=== PATIENT | female | born 1985 | race Caucasian/White ===

== ENCOUNTER 2017-11-03 11:21 | Emergency (ER) | payer OTHER, MEDICAID ==
[~2017-11-03] VITALS: Ht 162.6 cm; Wt 81.7 kg
[~2017-11-03 11:21] MED LIST: ACETAMINOPHEN-1 EAC1 PO; ADDERALL 10 MG10 MG PO; ADDERALL 20 MG20 MG PO; ADDERALL 30 MG30 MG PO; ALDACTONE100 MG PO; AMITRIPTYLINE H50 M3; ANTIVERT25 MG PO; AZITHROMYCIN 2250 MG PO; BACTRIM DS TAB1 EACH PO; BENADRYL25 MG PO; BENTYL 20 MG TA20 M1 PO; BIRTH CONTROL PILL; BRINTELLIX5 MG; BUTALBITAL PO; CARAFATE 1 GM TA1 G1 PO; CEPHALEXIN 500500 M3 PO; CIPROFLOXACIN500 M1 PO; CLARITIN10 MG PO; CLEOCIN HCL150 MG PO; CLEOCIN HCL300 MG PO; COD PO; CONCERTA54 M1 PO; DICLOFENAC SODI75 MG PO; DIFLUCAN150 MG; DOXYCYCLINE 10100 M1 PO; DOXYCYCLINE 10100 MG PO; ERYTHROMYCIN500 MG PO; FIORINAL 50-321 EACH PO; FIORINAL WITH1 EACH PO; FIORINAL/CODEIN30 M1 PO; FLEXERIL PO; GABAPENTIN; GABAPENTIN100 MG PO; HYDROCODON-ACE1 EAC7 PO; HYDROCODONE-AP1 EAC6 PO; HYDROCODONE-APA1 TA1 PO; IBUPROFEN 200200 M1 PO; IBUPROFEN 600600 M1 PO; IBUPROFEN 800800 M1 PO; KEFLEX500 MG PO; KLOR-CON 1010 MEQ PO; LAMICTAL100 MG PO; LATUDA20 MG PO; LEVAQUIN 500 M500 M2 PO; LEVAQUIN 500 M500 M4 PO; LEXAPRO20 MG PO; LIDOCAINE VISC100 M1 SWISH&SPIT; LIORESAL 10 MG10 MG PO; LODINE 200MG C200 M1 PO; MEDROLDOSEPACK PO; MIRANA; MIRENA1 EACH; MUPIROCIN1 GM TP; NAPROSYN500 MG PO; NEURONTIN 300300 M1; NEURONTIN 300300 M1 PO; NORCO 5-325 TA1 EAC1 PO; NORCO 5-325 TA1 EACH PO; ONDANSETRON HCL4 M2 PO; PERCOCET PO; PRENATAL; PRILOSEC 20 MG20 MG PO; PRILOSEC20 MG; PROMETHAZINE12.5 M1 PO; PYRIDIUM200 MG PO; ROBAXIN 750 MG750 M1 PO; TOPAMAX50 MG PO; TORADOL 10 MG T10 MG PO; TRAZODONE 150150 M1 PO; ULTRAM 50MG TAB50 MG PO; VALIUM5 MG PO; VENLAFAXIN75 MG/1 T2 PO; VISTARIL 25 MG25 M1; VISTARIL 25 MG25 M1 PO; VISTARIL50 MG PO; XANAX 0.5 MG0.5 M1 PO; ZANAFLEX4 M2 PO; ZANAFLEX4 MG PO; ZANTAC25 MG/1 ML IJ; ZOFRAN ODT4 MG PO; ZPAK PO
[2017-11-03 11:30] VITALS: BP 109/94
[2017-11-03] MEDS ORDERED: ZANTAC 150MG T150 MG PO (11:32)
[2017-11-03] MEDS ORDERED: CLEOCIN HCL150 MG PO (11:42)
[2018-06-22] MEDS ORDERED: PERCOCET 7.5-31 EACH PO (03:52)
[2018-06-22] MEDS ORDERED: DOXYCYCLINE 10100 MG PO (03:52)
== END 2017-11-03 11:47 | disposition home or self-care (01) ==
LOC: M.ERS 11:21
DX: K08.89 Other specified disorders of teeth and supporting structures (principal); F41.9 Anxiety disorder, unspecified; F31.9 Bipolar disorder, unspecified; F90.9 Attention-deficit hyperactivity disorder, unspecified type; G43.909 Migraine, unspecified, not intractable, without status migrainosus; F17.210 Nicotine dependence, cigarettes, uncomplicated; Z88.2 Allergy status to sulfonamides; Z88.1 Allergy status to other antibiotic agents; Z88.5 Allergy status to narcotic agent

== ENCOUNTER 2018-01-18 14:58 | Emergency (ER) | payer OTHER, MEDICAID ==
[~2018-01-18] VITALS: Ht 165.1 cm; Wt 72.6 kg
[~2018-01-18 14:58] MED LIST changes: +ZANTAC 150MG T150 MG PO
[2018-01-18] MEDS ORDERED: HYDROCODONE-AP1 EAC6 PO (16:19)
[2018-01-18 16:38] VITALS: BP 123/68
[2018-06-22] MEDS ORDERED: DOXYCYCLINE 10100 MG PO (03:52)
[2018-06-22] MEDS ORDERED: PERCOCET 7.5-31 EACH PO (03:52)
== END 2018-01-18 16:39 | disposition home or self-care (01) ==
LOC: M.ERS 14:58
DX: R07.81 Pleurodynia (principal); M54.6 Pain in thoracic spine; G43.909 Migraine, unspecified, not intractable, without status migrainosus; Z88.2 Allergy status to sulfonamides; Z88.1 Allergy status to other antibiotic agents; W10.9XXA Fall (on) (from) unspecified stairs and steps, initial encounter; Y93.89 Activity, other specified; Y92.89 Other specified places as the place of occurrence of the external cause; Y99.8 Other external cause status

== ENCOUNTER 2018-02-11 17:20 | Emergency (ER) | payer OTHER, MEDICAID ==
[~2018-02-11] VITALS: Ht 165.1 cm; Wt 96.3 kg
[2018-02-11] MEDS ORDERED: NEURONTIN 300300 M1 PO (17:33)
[2018-02-11] MEDS ORDERED: PHENERGAN 25 MG25 M1 PO (17:35)
[2018-02-11 17:45] VITALS: BP 145/83
[2018-06-22] MEDS ORDERED: PERCOCET 7.5-31 EACH PO (03:52)
[2018-06-22] MEDS ORDERED: DOXYCYCLINE 10100 MG PO (03:52)
== END 2018-02-11 17:46 | disposition home or self-care (01) ==
LOC: M.ERS 17:20
DX: G43.909 Migraine, unspecified, not intractable, without status migrainosus (principal); F31.9 Bipolar disorder, unspecified; F90.9 Attention-deficit hyperactivity disorder, unspecified type; F17.210 Nicotine dependence, cigarettes, uncomplicated; Z88.1 Allergy status to other antibiotic agents; Z88.6 Allergy status to analgesic agent

== ENCOUNTER 2018-02-16 16:15 | Emergency (ER) | payer OTHER, MEDICAID ==
[~2018-02-16] VITALS: Ht 165.1 cm; Wt 74.8 kg
[~2018-02-16 16:15] MED LIST changes: +PHENERGAN 25 MG25 M1 PO
[2018-02-16] MEDS ORDERED: XANAX 0.25 MG0.25 MG PO (16:22)
[2018-02-16] MEDS ORDERED: KEFLEX500 M1 PO (16:27)
[2018-02-16 16:32] VITALS: BP 117/61
[2018-02-17] MEDS ORDERED: ACETAMINOPHEN-1 EAC1 PO (21:15)
[2018-06-22] MEDS ORDERED: DOXYCYCLINE 10100 MG PO (03:52)
[2018-06-22] MEDS ORDERED: PERCOCET 7.5-31 EACH PO (03:52)
== END 2018-02-16 16:33 | disposition home or self-care (01) ==
LOC: M.ERS 16:15
DX: L03.317 Cellulitis of buttock (principal); F90.9 Attention-deficit hyperactivity disorder, unspecified type; F31.9 Bipolar disorder, unspecified; G43.909 Migraine, unspecified, not intractable, without status migrainosus; F17.210 Nicotine dependence, cigarettes, uncomplicated; Z88.6 Allergy status to analgesic agent; Z88.1 Allergy status to other antibiotic agents

== ENCOUNTER 2018-02-17 20:24 | Emergency (ER) | payer OTHER, MEDICAID ==
[~2018-02-17] VITALS: Ht 165.1 cm; Wt 74.8 kg
[~2018-02-17 20:24] MED LIST changes: +KEFLEX500 M1 PO; +XANAX 0.25 MG0.25 MG PO
[2018-02-17] MEDS ORDERED: ACETAMINOPHEN-1 EAC1 PO (21:15)
[2018-02-17 21:31] VITALS: BP 117/60
[2018-06-22] MEDS ORDERED: PERCOCET 7.5-31 EACH PO (03:52)
[2018-06-22] MEDS ORDERED: DOXYCYCLINE 10100 MG PO (03:52)
== END 2018-02-17 21:32 | disposition home or self-care (01) ==
LOC: M.ERS 20:24
DX: L02.31 Cutaneous abscess of buttock (principal); F90.9 Attention-deficit hyperactivity disorder, unspecified type; F31.9 Bipolar disorder, unspecified; F41.9 Anxiety disorder, unspecified; G43.909 Migraine, unspecified, not intractable, without status migrainosus; F17.210 Nicotine dependence, cigarettes, uncomplicated; Z88.2 Allergy status to sulfonamides; Z88.1 Allergy status to other antibiotic agents; Z88.6 Allergy status to analgesic agent

== ENCOUNTER 2018-03-25 20:04 | Emergency (ER) | payer OTHER, MEDICAID ==
[~2018-03-25] VITALS: Ht 165.1 cm; Wt 81.7 kg
[2018-03-25 20:34] LABS: URINE BILIRUBIN NEGATIVE (Negative); URINE BLOOD NEGATIVE (Negative); URINE CLARITY CLEAR; URINE COLOR YELLOW; URINE GLUCOSE-RANDOM NEGATIVE (Negative); URINE KETONES NEGATIVE (Negative); URINE LEUKOCYTES-REFLEX TRACE (Negative); URINE NITRITE-REFLEX NEGATIVE (Negative); URINE PROTEIN NEGATIVE (Negative); URINE SPECIFIC GRAVITY 1.025 (1.005-1.030); URINE UROBILINOGEN 0.2 E.U./dl (0.2-1.0)
[2018-03-25 20:36] LABS: BACTERIA-REFLEX None Seen /HPF (None Seen); CASTS None Seen /LPF (None Seen); CRYSTALS None Seen /LPF (None Seen); SQUAMOUS 4-10 Moderate /LPF (0-3); URINE RBC None Seen /HPF (0-2); URINE WBC-REFLEX 0-5 Rare /HPF (0-5)
[2018-03-25 21:01] LABS: ABSOLUTE EOSINOPHILS 0.3 thou/uL (0.0-0.7); ABSOLUTE MONOCYTES 0.6 thou/uL (0.0-1.2); ABSOLUTE NEUTROPHILS 5.2 thou/uL (1.6-8.1); BASOPHILS 0.5 %; EOSINOPHILS 2.9 %; HEMATOCRIT 37.7 % (37.0-47.0); HEMOGLOBIN 12.5 gm/dL (12.0-15.0); LYMPHOCYTES 39.6 %; MCH 29.9 pg (26.0-34.0); MCHC 33.3 g/dL (28.0-37.0); MONOCYTES 5.7 %; NUCLEATED RBCS 0 /100WBC; PLATELET COUNT* 244 thou/uL (150-400); POLYS 51.3 %; RBC 4.19 mil/uL (4.20-5.00); RDW-CV 13.3 % (10.5-14.5); WBC 10.1 thou/uL (4.0-11.0)
[2018-03-25 21:12] LABS: CALCIUM 8.4 mg/dL (8.5-10.1); CREATININE 0.7 mg/dL (0.6-1.3); POTASSIUM 3.7 mmol/L (3.5-5.1)
[2018-03-25 21:16] LABS: ALBUMIN 3.7 g/dL (3.4-5.0); TOTAL BILIRUBIN 0.2 mg/dL (<0.1-1.0); TOTAL PROTEIN 6.8 g/dL (6.4-8.2)
[2018-03-25] MEDS ORDERED: BENTYL 20 MG TA20 M1 PO (21:43)
[2018-03-25] MEDS ORDERED: ZOFRAN4 MG PO (21:43)
[2018-03-25 22:03] VITALS: BP 114/65
[2018-06-22] MEDS ORDERED: DOXYCYCLINE 10100 MG PO (03:52)
[2018-06-22] MEDS ORDERED: PERCOCET 7.5-31 EACH PO (03:52)
== END 2018-03-25 22:05 | disposition home or self-care (01) ==
LOC: M.ERS 20:04
PROVIDERS: Nurse Practitioner
DX: R10.84 Generalized abdominal pain (principal); F90.9 Attention-deficit hyperactivity disorder, unspecified type; F41.9 Anxiety disorder, unspecified; F31.9 Bipolar disorder, unspecified; F17.210 Nicotine dependence, cigarettes, uncomplicated; Z88.1 Allergy status to other antibiotic agents; Z88.6 Allergy status to analgesic agent; G43.909 Migraine, unspecified, not intractable, without status migrainosus

== ENCOUNTER 2018-04-11 21:04 | Emergency (ER) | payer OTHER, MEDICAID ==
[~2018-04-11] VITALS: Ht 165.1 cm; Wt 81.7 kg
[~2018-04-11 21:04] MED LIST changes: +ZOFRAN4 MG PO
[2018-04-11 21:11] VITALS: BP 140/90
[2018-04-11] MEDS ORDERED: KEFLEX500 M1 PO (21:12)
[2018-06-22] MEDS ORDERED: DOXYCYCLINE 10100 MG PO (03:52)
[2018-06-22] MEDS ORDERED: PERCOCET 7.5-31 EACH PO (03:52)
== END 2018-04-11 21:29 | disposition home or self-care (01) ==
LOC: M.ERS 21:04
DX: K08.89 Other specified disorders of teeth and supporting structures (principal); F90.9 Attention-deficit hyperactivity disorder, unspecified type; F31.9 Bipolar disorder, unspecified; F41.9 Anxiety disorder, unspecified; G43.909 Migraine, unspecified, not intractable, without status migrainosus; F17.210 Nicotine dependence, cigarettes, uncomplicated; Z88.2 Allergy status to sulfonamides; Z88.1 Allergy status to other antibiotic agents; Z88.6 Allergy status to analgesic agent

== ENCOUNTER 2018-05-25 00:37 | Emergency (ER) | payer OTHER, MEDICAID ==
[~2018-05-25] VITALS: Ht 165.1 cm; Wt 83.9 kg
[2018-05-25] MEDS ORDERED: NORCO 5-325 TA1 EACH PO (00:54)
[2018-05-25] MEDS ORDERED: KEFLEX500 M1 PO (00:54)
[2018-05-25 00:59] VITALS: BP 128/68
[2018-06-22] MEDS ORDERED: DOXYCYCLINE 10100 MG PO (03:52)
[2018-06-22] MEDS ORDERED: PERCOCET 7.5-31 EACH PO (03:52)
== END 2018-05-25 01:00 | disposition home or self-care (01) ==
LOC: M.ERS 00:37
DX: L03.115 Cellulitis of right lower limb (principal); F90.9 Attention-deficit hyperactivity disorder, unspecified type; F98.8 Other specified behavioral and emotional disorders with onset usually occurring in childhood and adolescence; F31.9 Bipolar disorder, unspecified; F41.9 Anxiety disorder, unspecified; G43.909 Migraine, unspecified, not intractable, without status migrainosus; F17.210 Nicotine dependence, cigarettes, uncomplicated; Z88.2 Allergy status to sulfonamides; Z88.1 Allergy status to other antibiotic agents; Z88.6 Allergy status to analgesic agent

== ENCOUNTER 2018-05-27 22:03 | Emergency (ER) | payer OTHER, MEDICAID ==
[~2018-05-27] VITALS: Ht 165.1 cm; Wt 83.9 kg
[2018-05-27] MEDS ORDERED: BUSPIRONE HCL10 MG PO (22:20)
[2018-05-27] MEDS ORDERED: VRAYLAR3 MG PO (22:21)
[2018-05-27 23:03] LABS: ABSOLUTE BASOPHILS 0.1 thou/uL (0.0-0.2); ABSOLUTE EOSINOPHILS 0.3 thou/uL (0.0-0.7); ABSOLUTE LYMPHOCYTES 2.2 thou/uL (0.8-5.3); ABSOLUTE MONOCYTES 0.8 thou/uL (0.0-1.2); ABSOLUTE NEUTROPHILS 9.4 thou/uL (1.6-8.1); BASOPHILS 0.5 %; EOSINOPHILS 2.1 %; HEMATOCRIT 36.9 % (37.0-47.0); HEMOGLOBIN 12.2 gm/dL (12.0-15.0); LYMPHOCYTES 17.5 %; MCH 29.8 pg (26.0-34.0); MCHC 33.1 g/dL (28.0-37.0); MCV 90.2 fL (80.0-100.0); MONOCYTES 6.5 %; MPV 8.2 fl. (7.2-11.1); NUCLEATED RBCS 0 /100WBC; PLATELET COUNT* 237 thou/uL (150-400); POLYS 73.4 %; RBC 4.09 mil/uL (4.20-5.00); RDW-CV 13.5 % (10.5-14.5); WBC 12.8 thou/uL (4.0-11.0)
[2018-05-27 23:13] LABS: CALCIUM 8.4 mg/dL (8.5-10.1); CREATININE 0.8 mg/dL (0.6-1.3); POTASSIUM 3.6 mmol/L (3.5-5.1)
[2018-05-27 23:17] LABS: ALBUMIN 3.4 g/dL (3.4-5.0); TOTAL BILIRUBIN 0.2 mg/dL (<0.1-1.0); TOTAL PROTEIN 6.7 g/dL (6.4-8.2)
[2018-05-27] MEDS ORDERED: OXYCODON-ACETA1 EAC1 PO (23:23)
[2018-05-27] MEDS ORDERED: DOXYCYCLINE 10100 MG PO (23:23)
[2018-05-27 23:44] VITALS: BP 122/80
[2018-06-22] MEDS ORDERED: DOXYCYCLINE 10100 MG PO (03:52)
[2018-06-22] MEDS ORDERED: PERCOCET 7.5-31 EACH PO (03:52)
== END 2018-05-27 23:47 | disposition home or self-care (01) ==
LOC: M.ERS 22:03
PROVIDERS: Emergency Medicine
DX: L02.415 Cutaneous abscess of right lower limb (principal); L03.115 Cellulitis of right lower limb; F90.9 Attention-deficit hyperactivity disorder, unspecified type; F31.9 Bipolar disorder, unspecified; F41.9 Anxiety disorder, unspecified; G43.909 Migraine, unspecified, not intractable, without status migrainosus; F17.210 Nicotine dependence, cigarettes, uncomplicated; Z88.2 Allergy status to sulfonamides; Z88.1 Allergy status to other antibiotic agents; Z88.6 Allergy status to analgesic agent

== ENCOUNTER 2018-09-29 10:40 | Emergency (ER) | payer OTHER, MEDICAID ==
[~2018-09-29] VITALS: Ht 165.1 cm; Wt 81.7 kg
[~2018-09-29 10:40] MED LIST changes: +BUSPIRONE HCL10 MG PO; +OXYCODON-ACETA1 EAC1 PO; +PERCOCET 7.5-31 EACH PO; +VRAYLAR3 MG PO
[2018-09-29 10:53] LABS: ICTOTEST (BILI CONFIRMATORY) Negative (Negative); URINE BILIRUBIN 1+ (Negative); URINE BLOOD NEGATIVE (Negative); URINE CLARITY CLEAR; URINE COLOR YELLOW; URINE GLUCOSE-RANDOM NEGATIVE (Negative); URINE KETONES TRACE (Negative); URINE LEUKOCYTES-REFLEX NEGATIVE (Negative); URINE NITRITE-REFLEX NEGATIVE (Negative); URINE PROTEIN TRACE (Negative); URINE SPECIFIC GRAVITY >= 1.030 (1.005-1.030); URINE UROBILINOGEN 0.2 E.U./dl (0.2-1.0)
[2018-09-29] MEDS ORDERED: NAPROSYN500 MG PO (10:56)
[2018-09-29] MEDS ORDERED: PROPRANOLOL 4040 MG (10:57)
[2018-09-29 11:25] LABS: ABSOLUTE BASOPHILS 0.1 thou/uL (0.0-0.2); ABSOLUTE EOSINOPHILS 0.3 thou/uL (0.0-0.7); ABSOLUTE LYMPHOCYTES 2.3 thou/uL (0.8-5.3); ABSOLUTE MONOCYTES 0.4 thou/uL (0.0-1.2); ABSOLUTE NEUTROPHILS 4.9 thou/uL (1.6-8.1); BASOPHILS 0.8 %; EOSINOPHILS 4.2 %; HEMATOCRIT 39.6 % (37.0-47.0); HEMOGLOBIN 13.1 gm/dL (12.0-15.0); LYMPHOCYTES 28.6 %; MCHC 33.1 g/dL (28.0-37.0); MCV 90.4 fL (80.0-100.0); MONOCYTES 5.4 %; NUCLEATED RBCS 0 /100WBC; PLATELET COUNT* 240 thou/uL (150-400); RBC 4.38 mil/uL (4.20-5.00); RDW-CV 13.9 % (10.5-14.5); WBC 8.1 thou/uL (4.0-11.0)
[2018-09-29 11:36] LABS: CALCIUM 8.5 mg/dL (8.5-10.1); CREATININE 0.8 mg/dL (0.6-1.3); POTASSIUM 3.4 mmol/L (3.5-5.1)
[2018-09-29 11:40] LABS: ALBUMIN 3.8 g/dL (3.4-5.0); TOTAL BILIRUBIN 0.3 mg/dL (<0.1-1.0); TOTAL PROTEIN 6.9 g/dL (6.4-8.2)
[2018-09-29] MEDS ORDERED: ZOFRAN ODT4 MG PO (12:35)
[2018-09-29] MEDS ORDERED: BENTYL 20 MG TA20 M1 PO (12:36)
[2018-09-29 12:45] VITALS: BP 125/83
== END 2018-09-29 12:53 | disposition home or self-care (01) ==
LOC: M.ERS 10:40
PROVIDERS: Nurse Practitioner Family
DX: R10.31 Right lower quadrant pain (principal); R10.32 Left lower quadrant pain; R11.0 Nausea; F31.9 Bipolar disorder, unspecified; F41.9 Anxiety disorder, unspecified; G43.909 Migraine, unspecified, not intractable, without status migrainosus; F90.9 Attention-deficit hyperactivity disorder, unspecified type; F17.210 Nicotine dependence, cigarettes, uncomplicated; Z88.1 Allergy status to other antibiotic agents; Z88.2 Allergy status to sulfonamides; Z88.8 Allergy status to other drugs, medicaments and biological substances

== ENCOUNTER 2018-11-07 05:28 | Emergency (ER) | payer OTHER, MEDICAID ==
[~2018-11-07] VITALS: Ht 165.1 cm; Wt 86.2 kg
[~2018-11-07 05:28] MED LIST changes: +PROPRANOLOL 4040 MG
[2018-11-07] MEDS ORDERED: MIRENA1 EACH (05:37)
[2018-11-07 06:28] VITALS: BP 130/88
[2018-11-07] MEDS ORDERED: NORCO 5-325 TA1 EAC1 PO (17:19)
== END 2018-11-07 06:28 | disposition home or self-care (01) ==
LOC: M.ERS 05:28
DX: S93.492A Sprain of other ligament of left ankle, initial encounter (principal); F17.210 Nicotine dependence, cigarettes, uncomplicated; F90.9 Attention-deficit hyperactivity disorder, unspecified type; F98.8 Other specified behavioral and emotional disorders with onset usually occurring in childhood and adolescence; F31.9 Bipolar disorder, unspecified; F41.9 Anxiety disorder, unspecified; G43.909 Migraine, unspecified, not intractable, without status migrainosus; Z88.2 Allergy status to sulfonamides; Z88.8 Allergy status to other drugs, medicaments and biological substances; Z88.1 Allergy status to other antibiotic agents; Z88.6 Allergy status to analgesic agent; W51.XXXA Accidental striking against or bumped into by another person, initial encounter; Y93.89 Activity, other specified; Y92.89 Other specified places as the place of occurrence of the external cause; Y99.8 Other external cause status

== ENCOUNTER 2018-11-07 15:59 | Emergency (ER) | payer OTHER, MEDICAID ==
[~2018-11-07] VITALS: Ht 165.1 cm; Wt 81.7 kg
[2018-11-07] MEDS ORDERED: NORCO 5-325 TA1 EAC1 PO (17:19)
[2018-11-07 17:25] VITALS: BP 131/76
== END 2018-11-07 17:27 | disposition home or self-care (01) ==
LOC: M.ERS 15:59
DX: S82.892D Other fracture of left lower leg, subsequent encounter for closed fracture with routine healing (principal); X58.XXXD Exposure to other specified factors, subsequent encounter; F90.9 Attention-deficit hyperactivity disorder, unspecified type; F31.9 Bipolar disorder, unspecified; F41.9 Anxiety disorder, unspecified; G43.909 Migraine, unspecified, not intractable, without status migrainosus; F17.210 Nicotine dependence, cigarettes, uncomplicated; Z88.1 Allergy status to other antibiotic agents; Z88.2 Allergy status to sulfonamides; Z88.8 Allergy status to other drugs, medicaments and biological substances

== ENCOUNTER 2018-12-12 09:27 | Emergency (ER) | payer OTHER, MEDICAID ==
[~2018-12-12] VITALS: Ht 152.4 cm; Wt 81.7 kg
[2018-12-12] MEDS ORDERED: HYDROCODON-ACE1 EAC7 PO (10:39)
[2018-12-12 10:50] VITALS: BP 130/77
== END 2018-12-12 10:50 | disposition home or self-care (01) ==
LOC: M.ERS 09:27
DX: L02.215 Cutaneous abscess of perineum (principal); F31.9 Bipolar disorder, unspecified; F41.9 Anxiety disorder, unspecified; G43.909 Migraine, unspecified, not intractable, without status migrainosus; F90.9 Attention-deficit hyperactivity disorder, unspecified type; F17.210 Nicotine dependence, cigarettes, uncomplicated; Z88.2 Allergy status to sulfonamides; Z88.1 Allergy status to other antibiotic agents; Z88.8 Allergy status to other drugs, medicaments and biological substances

== ENCOUNTER 2019-03-03 01:54 | Emergency (ER) | payer OTHER, MEDICAID ==
[~2019-03-03] VITALS: Ht 165.1 cm; Wt 81.7 kg
[~2019-03-03 01:54] MED LIST changes: +NORCO 7.5-3251 EACH PO
[2019-03-03 01:58] VITALS: BP 135/81
[2019-03-03] MEDS ORDERED: NEURONTIN 300300 M1 PO (02:01)
[2019-03-03] MEDS ORDERED: MEDROLDOSEPACK PO (02:12)
== END 2019-03-03 02:18 | disposition home or self-care (01) ==
LOC: M.ERS 01:54
DX: G56.01 Carpal tunnel syndrome, right upper limb (principal); F90.9 Attention-deficit hyperactivity disorder, unspecified type; F31.9 Bipolar disorder, unspecified; F41.9 Anxiety disorder, unspecified; G43.909 Migraine, unspecified, not intractable, without status migrainosus; F17.210 Nicotine dependence, cigarettes, uncomplicated; Z88.1 Allergy status to other antibiotic agents; Z88.2 Allergy status to sulfonamides; Z88.6 Allergy status to analgesic agent; Z98.890 Other specified postprocedural states

== ENCOUNTER 2019-03-22 18:45 | Emergency (ER) | payer OTHER, MEDICAID ==
[~2019-03-22] VITALS: Ht 165.1 cm; Wt 77.1 kg
[2019-03-22 18:58] VITALS: BP 149/76
[2019-03-22] MEDS ORDERED: ZPAK PO (19:11)
[2019-03-22] MEDS ORDERED: MEDROLDOSEPACK PO (19:11)
== END 2019-03-22 19:21 | disposition home or self-care (01) ==
LOC: M.ERS 18:45
DX: J01.00 Acute maxillary sinusitis, unspecified (principal); F90.9 Attention-deficit hyperactivity disorder, unspecified type; F31.9 Bipolar disorder, unspecified; F41.9 Anxiety disorder, unspecified; G43.909 Migraine, unspecified, not intractable, without status migrainosus; F17.210 Nicotine dependence, cigarettes, uncomplicated; Z88.2 Allergy status to sulfonamides; Z88.1 Allergy status to other antibiotic agents; Z88.6 Allergy status to analgesic agent

== ENCOUNTER 2019-12-03 15:35 | Emergency (ER) | payer OTHER, MEDICAID ==
[~2019-12-03] VITALS: Ht 162.6 cm; Wt 81.7 kg
[2019-12-03] MEDS ORDERED: LEXAPRO20 MG PO (15:45)
[2019-12-03] MEDS ORDERED: SUBOXONE 8 MG-1 EAC3 SUBLING (15:46)
[2019-12-03] MEDS ORDERED: NAPROSYN500 MG PO (16:26)
[2019-12-03] MEDS ORDERED: CEFDINIR300 MG PO (16:26)
[2019-12-03 16:38] VITALS: BP 130/74
== END 2019-12-03 16:39 | disposition home or self-care (01) ==
LOC: M.ERS 15:35
DX: H66.92 Otitis media, unspecified, left ear (principal); G43.909 Migraine, unspecified, not intractable, without status migrainosus; F31.9 Bipolar disorder, unspecified; F17.210 Nicotine dependence, cigarettes, uncomplicated; Z98.890 Other specified postprocedural states; Z88.2 Allergy status to sulfonamides; Z88.1 Allergy status to other antibiotic agents; Z88.8 Allergy status to other drugs, medicaments and biological substances

== ENCOUNTER 2020-04-13 06:29 | Emergency (ER) | payer OTHER, MEDICAID ==
[~2020-04-13] VITALS: Ht 165.1 cm; Wt 79.4 kg
[~2020-04-13 06:29] MED LIST changes: +CEFDINIR300 MG PO; +SUBOXONE 8 MG-1 EAC3 SUBLING
[2020-04-13] MEDS ORDERED: NORCO 5-325 TA1 EAC1 PO (07:19)
[2020-04-13] MEDS ORDERED: MEDROLDOSEPACK PO (07:19)
[2020-04-13 07:28] VITALS: BP 127/76
== END 2020-04-13 07:32 | disposition home or self-care (01) ==
LOC: M.ERS 06:29
DX: M26.622 Arthralgia of left temporomandibular joint (principal); G43.909 Migraine, unspecified, not intractable, without status migrainosus; F31.9 Bipolar disorder, unspecified; F41.9 Anxiety disorder, unspecified; F17.210 Nicotine dependence, cigarettes, uncomplicated; Z88.1 Allergy status to other antibiotic agents; Z88.2 Allergy status to sulfonamides; Z88.6 Allergy status to analgesic agent

== ENCOUNTER 2020-05-11 10:41 | Emergency (ER) | payer OTHER, MEDICAID ==
[~2020-05-11] VITALS: Ht 165.1 cm; Wt 77.1 kg
[2020-05-11] MEDS ORDERED: MEDROLDOSEPACK PO (11:40)
[2020-05-11] MEDS ORDERED: NAPROSYN500 MG PO (11:40)
[2020-05-11 11:41] VITALS: BP 146/91
== END 2020-05-11 11:48 | disposition home or self-care (01) ==
LOC: M.ERS 10:41
DX: M26.622 Arthralgia of left temporomandibular joint (principal); K02.9 Dental caries, unspecified; G43.909 Migraine, unspecified, not intractable, without status migrainosus; F41.9 Anxiety disorder, unspecified; F31.9 Bipolar disorder, unspecified; F17.210 Nicotine dependence, cigarettes, uncomplicated; Z88.1 Allergy status to other antibiotic agents; Z88.2 Allergy status to sulfonamides; Z88.6 Allergy status to analgesic agent

== ENCOUNTER 2020-07-21 10:42 | Emergency (ER) | payer OTHER, MEDICAID ==
[~2020-07-21] VITALS: Ht 165.1 cm; Wt 79.4 kg
[2020-07-21 11:00] LABS: URINE BILIRUBIN NEGATIVE (Negative); URINE BLOOD NEGATIVE (Negative); URINE CLARITY CLEAR; URINE COLOR YELLOW; URINE GLUCOSE-RANDOM NEGATIVE (Negative); URINE KETONES NEGATIVE (Negative); URINE LEUKOCYTES-REFLEX NEGATIVE (Negative); URINE NITRITE-REFLEX NEGATIVE (Negative); URINE PROTEIN NEGATIVE (Negative); URINE UROBILINOGEN 0.2 E.U./dl (0.2-1.0)
[2020-07-21 11:21] LABS: ABSOLUTE BASOPHILS 0.1 thou/uL (0.0-0.2); ABSOLUTE EOSINOPHILS 0.2 thou/uL (0.0-0.7); ABSOLUTE LYMPHOCYTES 2.3 thou/uL (0.8-5.3); ABSOLUTE MONOCYTES 0.5 thou/uL (0.0-1.2); ABSOLUTE NEUTROPHILS 8.8 thou/uL (1.6-8.1); BASOPHILS 0.6 %; EOSINOPHILS 1.6 %; HEMATOCRIT 41.8 % (37.0-47.0); HEMOGLOBIN 14.2 gm/dL (12.0-15.0); LYMPHOCYTES 19.5 %; MCH 30.4 pg (26.0-34.0); MCHC 33.9 g/dL (28.0-37.0); MCV 89.6 fL (80.0-100.0); MONOCYTES 4.2 %; MPV 7.2 fl. (7.2-11.1); NUCLEATED RBCS 0 /100WBC; PLATELET COUNT* 288 thou/uL (150-400); POLYS 74.1 %; RBC 4.67 mil/uL (4.20-5.00); WBC 11.9 thou/uL (4.0-11.0)
[2020-07-21 11:28] LABS: CALCIUM 8.9 mg/dL (8.5-10.1); CREATININE 0.8 mg/dL (0.6-1.3); POTASSIUM 3.9 mmol/L (3.5-5.1)
[2020-07-21 11:33] LABS: ALBUMIN 3.9 g/dL (3.4-5.0); TOTAL BILIRUBIN 0.4 mg/dL (<0.1-1.0); TOTAL PROTEIN 7.3 g/dL (6.4-8.2)
[2020-07-21] MEDS ORDERED: ZOFRAN ODT4 MG SUBLING (12:45)
[2020-07-21] MEDS ORDERED: NORCO 5-325 TA1 EAC2 PO (12:45)
[2020-07-21 12:53] VITALS: BP 135/70
== END 2020-07-21 12:54 | disposition home or self-care (01) ==
LOC: M.ERS 10:42
PROVIDERS: Family Medicine
DX: R10.13 Epigastric pain (principal); G43.909 Migraine, unspecified, not intractable, without status migrainosus; F41.9 Anxiety disorder, unspecified; F31.9 Bipolar disorder, unspecified; F17.210 Nicotine dependence, cigarettes, uncomplicated; Z88.1 Allergy status to other antibiotic agents; Z88.2 Allergy status to sulfonamides; Z88.6 Allergy status to analgesic agent

== ENCOUNTER 2020-08-04 05:23 | Emergency (ER) | payer OTHER, MEDICAID ==
[~2020-08-04] VITALS: Ht 165.1 cm; Wt 81.7 kg
[~2020-08-04 05:23] MED LIST changes: +NORCO 5-325 TA1 EAC2 PO; +ZOFRAN ODT4 MG SUBLING
[2020-08-04] MEDS ORDERED: CARAFATE1 GM PO (05:37)
[2020-08-04 05:54] LABS: URINE BLOOD 1+ (Negative); URINE CLARITY SL CLOUDY; URINE COLOR YELLOW; URINE GLUCOSE-RANDOM NEGATIVE (Negative); URINE KETONES NEGATIVE (Negative); URINE LEUKOCYTES-REFLEX TRACE (Negative); URINE NITRITE-REFLEX NEGATIVE (Negative); URINE PROTEIN TRACE (Negative); URINE SPECIFIC GRAVITY >= 1.030 (1.005-1.030)
[2020-08-04 05:58] LABS: URINE BILIRUBIN 1+ (Negative)
[2020-08-04 06:00] LABS: ICTOTEST (BILI CONFIRMATORY) Positive (Negative)
[2020-08-04 06:33] LABS: SQUAMOUS >10 Many /LPF (0-3)
[2020-08-04 06:34] LABS: CASTS None Seen /LPF (None Seen); MUCUS 4-6 Moderate strn/LPF (None Seen)
[2020-08-04 06:36] LABS: CRYSTALS None Seen /LPF (None Seen); URINE RBC 3-10 Few /HPF (0-2); URINE WBC-REFLEX 6-15 Few /HPF (0-5)
[2020-08-04 07:04] LABS: ABSOLUTE EOSINOPHILS 0.2 thou/uL (0.0-0.7); ABSOLUTE LYMPHOCYTES 1.8 thou/uL (0.8-5.3); ABSOLUTE MONOCYTES 0.6 thou/uL (0.0-1.2); ABSOLUTE NEUTROPHILS 7.2 thou/uL (1.6-8.1); BASOPHILS 0.5 %; EOSINOPHILS 2.2 %; HEMATOCRIT 41.4 % (37.0-47.0); HEMOGLOBIN 13.9 gm/dL (12.0-15.0); LYMPHOCYTES 18.3 %; MCH 30.1 pg (26.0-34.0); MCHC 33.6 g/dL (28.0-37.0); MCV 89.6 fL (80.0-100.0); MONOCYTES 6.3 %; MPV 7.6 fl. (7.2-11.1); NUCLEATED RBCS 0 /100WBC; PLATELET COUNT* 260 thou/uL (150-400); POLYS 72.7 %; RBC 4.62 mil/uL (4.20-5.00); RDW-CV 13.4 % (10.5-14.5)
[2020-08-04 07:11] LABS: CALCIUM 8.9 mg/dL (8.5-10.1); CREATININE 0.7 mg/dL (0.6-1.3)
[2020-08-04 07:15] LABS: ALBUMIN 4.4 g/dL (3.4-5.0); MAGNESIUM 2.2 mg/dL (1.8-2.4); TOTAL BILIRUBIN 0.7 mg/dL (<0.1-1.0); TOTAL PROTEIN 7.8 g/dL (6.4-8.2)
[2020-08-04 07:48] VITALS: BP 121/73
--- NOTE | 2020-08-05 10:30 | EKG ---
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1985 Requested By: Apple Segovia Order Number: [id number] MD: Barry Morillo Measurements Intervals [place] Rate: 79 P: 21 AR: 163 QRS: 85 QRSD: 106 T: 67 QT: 409 QTc: 469 Interpretive Statements Sinus rhythm Ventricular premature complex Compared to ECG 06/03/2017 12:47:08 Ventricular premature complex(es) now present Electronically Signed On 08-05-2020 10:30:32 CDT by Barry Morillo [email or web address] <ELECTRONICALLY SIGNED> By: Barry Morillo MD, FAC 08/05/20 1030 0554 0554 Barry Morillo MD, [facility] /EPI
== END 2020-08-04 07:49 | disposition still patient (30) ==
LOC: M.ERS 05:23
PROVIDERS: Emergency Medicine
DX: R10.13 Epigastric pain (principal); R10.11 Right upper quadrant pain; R11.0 Nausea; F90.9 Attention-deficit hyperactivity disorder, unspecified type; F31.9 Bipolar disorder, unspecified; F41.9 Anxiety disorder, unspecified; F17.210 Nicotine dependence, cigarettes, uncomplicated; G43.909 Migraine, unspecified, not intractable, without status migrainosus; Z98.890 Other specified postprocedural states; Z79.899 Other long term (current) drug therapy; Z88.2 Allergy status to sulfonamides; Z88.1 Allergy status to other antibiotic agents; Z88.8 Allergy status to other drugs, medicaments and biological substances

== ENCOUNTER 2021-04-04 09:06 | Emergency (ER) | payer OTHER, MEDICAID ==
[~2021-04-04] VITALS: Ht 165.1 cm; Wt 83.9 kg
[~2021-04-04 09:06] MED LIST changes: +ALDACTONE25 MG PO; +CARAFATE1 GM PO; +DESYREL150 MG PO; +FISH OIL 1,001000 M2 PO; +LEXAPRO 10 MG T10 M1 PO; +MELATONIN3 MG PO; +MIRENA1 EACH VAG; +NEURONTIN300 MG PO; +VITAMIN D1000 UNI1 PO; +XANAX 0.5 MG0.5 MG PO
[2021-04-04] MEDS ORDERED: LATUDA20 MG (09:14)
[2021-04-04 09:57] LABS: ABSOLUTE BASOPHILS 0.1 thou/uL (0.0-0.2); ABSOLUTE EOSINOPHILS 0.1 thou/uL (0.0-0.7); ABSOLUTE LYMPHOCYTES 2.2 thou/uL (0.8-5.3); ABSOLUTE MONOCYTES 0.5 thou/uL (0.0-1.2); ABSOLUTE NEUTROPHILS 7.8 thou/uL (1.6-8.1); BASOPHILS 0.6 %; EOSINOPHILS 1.3 %; HEMATOCRIT 36.6 % (37.0-47.0); HEMOGLOBIN 12.5 gm/dL (12.0-15.0); LYMPHOCYTES 20.6 %; MCH 30.1 pg (26.0-34.0); MCHC 34.3 g/dL (28.0-37.0); MCV 87.7 fL (80.0-100.0); MONOCYTES 4.7 %; MPV 7.4 fl. (7.2-11.1); NUCLEATED RBCS 0 /100WBC; PLATELET COUNT* 255 thou/uL (150-400); POLYS 72.8 %; RBC 4.18 mil/uL (4.20-5.00); RDW-CV 13.9 % (10.5-14.5); WBC 10.7 thou/uL (4.0-11.0)
[2021-04-04 10:08] LABS: CALCIUM 8.5 mg/dL (8.5-10.1); CREATININE 0.8 mg/dL (0.6-1.3)
[2021-04-04 10:13] LABS: ALBUMIN 3.7 g/dL (3.4-5.0); TOTAL BILIRUBIN 0.3 mg/dL (<0.1-1.0); TOTAL PROTEIN 6.7 g/dL (6.4-8.2)
[2021-04-04 10:14] LABS: POTASSIUM 2.7 mmol/L (3.5-5.1)
[2021-04-04] MEDS ORDERED: CARAFATE1 GM PO (13:23)
[2021-04-04 13:36] VITALS: BP 136/62
--- NOTE | 2021-04-04 16:33 | EKG ---
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1985 Requested By: Kris Davalos Order Number: [id number] MD: Richard Morris Measurements Intervals [place] Rate: 77 P: 20 [place]: 163 QRS: 58 QRSD: 114 T: 73 QT: 411 QTc: 466 Interpretive Statements Sinus rhythm Borderline intraventricular conduction delay Borderline T wave abnormalities Compared to ECG 09/30/2020 15:18:17 T-wave abnormality now present Sinus tachycardia no longer present Prolonged QT interval no longer present Electronically Signed On 04-04-2021 16:33:29 CDT by Richard Morris [email or web address] <ELECTRONICALLY SIGNED> By: Richard Morris MD, [facility] 04/04/21 1633 0935 0935 Richard Morris MD, [facility] /EPI
== END 2021-04-04 13:37 | disposition home or self-care (01) ==
LOC: M.ERS 09:06
PROVIDERS: Emergency Medicine Emergency Medical Services
DX: R10.10 Upper abdominal pain, unspecified (principal); K21.9 Gastro-esophageal reflux disease without esophagitis; Z79.82 Long term (current) use of aspirin; Z98.890 Other specified postprocedural states

== ENCOUNTER 2021-05-28 18:05 | Emergency (ER) | payer OTHER, MEDICAID ==
[~2021-05-28] VITALS: Ht 165.1 cm; Wt 79.4 kg
[~2021-05-28 18:05] MED LIST changes: +LATUDA20 MG
[2021-05-28] MEDS ORDERED: IBUPROFEN 800800 M1 PO (20:01)
[2021-05-28] MEDS ORDERED: HYDROCODON-ACE1 EAC8 PO (20:12)
[2021-05-28 20:42] VITALS: BP 137/98
== END 2021-05-28 20:42 | disposition home or self-care (01) ==
LOC: M.ERS 18:05
DX: S92.102A Unspecified fracture of left talus, initial encounter for closed fracture (principal); K21.9 Gastro-esophageal reflux disease without esophagitis; F17.210 Nicotine dependence, cigarettes, uncomplicated; Z88.2 Allergy status to sulfonamides; Z88.1 Allergy status to other antibiotic agents; Z88.6 Allergy status to analgesic agent; Z79.899 Other long term (current) drug therapy; V89.9XXA Person injured in unspecified vehicle accident, initial encounter; Y93.89 Activity, other specified; Y92.89 Other specified places as the place of occurrence of the external cause; Y99.9 Unspecified external cause status

== ENCOUNTER 2021-09-17 20:32 | Emergency (ER) | payer OTHER, MEDICAID ==
[~2021-09-17] VITALS: Ht 162.6 cm; Wt 83.9 kg
[~2021-09-17 20:32] MED LIST changes: +HYDROCODON-ACE1 EAC8 PO
[2021-09-17] MEDS ORDERED: METFORMIN HCL500 M3 PO (20:51)
[2021-09-17] MEDS ORDERED: FLEXERIL PO (21:51)
[2021-09-17 22:13] VITALS: BP 130/72
== END 2021-09-17 22:13 | disposition home or self-care (01) ==
LOC: M.ERS 20:32
DX: M25.572 Pain in left ankle and joints of left foot (principal); F41.9 Anxiety disorder, unspecified; F32.9 Major depressive disorder, single episode, unspecified; K21.9 Gastro-esophageal reflux disease without esophagitis; F17.210 Nicotine dependence, cigarettes, uncomplicated; Z98.890 Other specified postprocedural states; Z79.891 Long term (current) use of opiate analgesic; Z79.1 Long term (current) use of non-steroidal anti-inflammatories (NSAID); Z79.899 Other long term (current) drug therapy; Z79.84 Long term (current) use of oral hypoglycemic drugs; Z88.6 Allergy status to analgesic agent; Z88.1 Allergy status to other antibiotic agents; Z88.2 Allergy status to sulfonamides; Z88.8 Allergy status to other drugs, medicaments and biological substances

== ENCOUNTER 2021-12-21 20:00 | Emergency (ER) | payer OTHER, MEDICAID ==
[~2021-12-21] VITALS: Ht 162.6 cm; Wt 83.9 kg
[~2021-12-21 20:00] MED LIST changes: +METFORMIN HCL500 M3 PO
[2021-12-21] MEDS ORDERED: CENTANY30 GM TOP ×2 (20:29→21:55)
[2021-12-21] MEDS ORDERED: LIDOCAINE VISC100 ML TOP ×2 (20:29→21:55)
[2021-12-21] MEDS ORDERED: APAP W/CODEINE1 TA2 PO ×2 (20:30→21:55)
[2021-12-21 20:51] VITALS: BP 132/98
== END 2021-12-21 20:52 | disposition home or self-care (01) ==
LOC: M.ERS 20:00
DX: S91.212A Laceration without foreign body of left great toe with damage to nail, initial encounter (principal); F41.9 Anxiety disorder, unspecified; F32.9 Major depressive disorder, single episode, unspecified; K21.9 Gastro-esophageal reflux disease without esophagitis; F17.210 Nicotine dependence, cigarettes, uncomplicated; Z98.890 Other specified postprocedural states; Z79.899 Other long term (current) drug therapy; Z88.2 Allergy status to sulfonamides; Z88.1 Allergy status to other antibiotic agents; Z88.8 Allergy status to other drugs, medicaments and biological substances; X58.XXXA Exposure to other specified factors, initial encounter; Y93.89 Activity, other specified; Y92.89 Other specified places as the place of occurrence of the external cause; Y99.8 Other external cause status